=== PATIENT | male | born 1960 | race American Indian/Alaskan Native ===

== ENCOUNTER 2019-04-17 15:04 | Inpatient (IN) ==
[2019-04-17] MEDS ORDERED: 0.9 % SODIUM CHLORIDE 1,000 ML IV ONE (16:12)
[2019-04-17 16:50] LABS: Basophils # (Auto) 0 K/mcL (0.0-0.3); Basophils % (Auto) 0.2 % (0.0-2.0); Eosinophils # (Auto) 0 K/mcL (0.0-0.7); Eosinophils % (Auto) 0 % (0.0-7.0); Granulocytes % (Auto) 87.5 % (38.0-78.0); Hematocrit 38.8 % (41.0-55.0); Hemoglobin 13.2 g/dL (13.5-16.5); Lymphocytes # (Auto) 0.7 K/mcL (1.5-4.8); Lymphocytes % (Auto) 7.8 % (15.5-49.0); Mean Cell Volume 104.3 fL (80.0-100.0); Mean Corpuscular HGB Conc 34.2 g/dL (31.0-36.0); Mean Platelet Volume 6.7 fL (7.4-10.4); Monocytes # (Auto) 0.4 K/mcL (0.1-0.9); Monocytes % (Auto) 4.5 % (1.0-12.0); Platelet Count 313 K/mcL (140-440); RBC 3.72 M/mcL (4.50-5.90); Red Cell Distribution Width 13.9 % (11.5-14.5); WBC 9.3 K/mcL (4.5-11.0)
[2019-04-17 17:09] LABS: ALT/SGPT 73 U/l (0-40); AST/SGOT 72 U/l (0-37); Albumin 4.6 gm/dL (3.2-5.2); Albumin/Globulin Ratio 1.1 (1.0-2.3); Alkaline Phosphatase 145 U/L (39-117); Amylase 76 U/L (28-100); Bilirubin,Total 0.7 mg/dL (0.0-1.0); Blood Urea Nitrogen 48 mg/dl (6-20); Calcium 9.1 mg/dl (8.6-10.4); Carbon Dioxide 18 mmol/L (22-30); Chloride 99 mmol/L (96-108); Globulin 4.1 gm/dL (2.2-3.7); Glomerular Filtration Rate 40; Glucose 227 mg/dL (70-105); Lipase 186 U/L (7-60); Potassium 4.6 mmol/L (3.3-5.1); Sodium 135 mmol/L (133-145)
[2019-04-17] MEDS ORDERED: ONDANSETRON 4 MG/2 ML VIAL IV ONE (17:37)
--- NOTE | 2019-04-17 17:38 | Emergency Department Note ---
Abdominal Pain HPI - General Chief Complaint: Abdominal Pain Stated Complaint: Abdominal Cramping Time Seen by Provider: 04/17/19 16:12 Source: patient Mode of arrival: ambulatory Limitations: no limitations - History of Present Illness HPI Narrative: 59-year-old male presents with abdominal pain. States he had upper abdominal pain off and on for the last several years and nobody believes him. His abdominal pain was worse today when he was at the chiropractor and acupuncture office. States he is recently started seeing Dr. Damon for his back pain, which is a hard story to follow, but he suggested some acupuncture so he started going to [facility]. She suggested he come to the ER due to his severe abdominal pain and shakiness today. He does note that he binge drinks a couple of times a week. Last drink was Tuesday and Tuesday. "A bottle ". In the history there is mention about previous pancreatitis but he denies any knowledge of previous pancreatitis. States he did have hepatitis B at the age of 13. He is a somewhat poor historian and hard to follow. No fever chills. Does have some nausea. No vomiting or diarrhea. It is a cramping type feeling across his upper abdomen that was a 10 out of 10 earlier but is slightly better now. States this has been going on for years but much worse over the last couple of days. - Related Data Home Medications Medication Instructions Recorded Confirmed aspirin 81 mg tablet,delayed 81 mg PO QDAY 12/09/15 04/17/19 release cetirizine 10 mg tablet 10 mg PO QHS 12/09/15 04/17/19 cyanocobalamin (vit B-12) 1,000 1,000 mcg PO QDAY 12/09/15 04/17/19 mcg tablet irbesartan 75 mg tablet 75 mg PO QDAY 12/09/15 04/17/19 lidocaine 5 % topical patch 5 % TRANSDERMA QDAY patch 12/09/15 04/17/19 methocarbamol 750 mg tablet 750 mg PO QID tab 12/09/15 04/17/19 omeprazole 20 mg capsule,delayed 20 mg PO QDAY cap 12/09/15 04/17/19 release pravastatin 40 mg tablet 20 mg PO QHS tab 12/09/15 04/17/19 ondansetron 4 mg disintegrating 4 mg PO BID tab 10/11/17 04/17/19 tablet Allopurinol [Zyloprim] 100 mg PO QDAY 04/17/19 04/17/19 Carvedilol [Coreg] 12.5 mg PO BIDCC 04/17/19 04/17/19 Gabapentin [Neurontin] 300 mg BID 04/17/19 04/17/19 prednisoLONE [Millipred] 5 mg PO DAILY 04/17/19 04/17/19 Previous Rx's Medication Instructions Recorded methotrexate sodium 2.5 mg tablet 15 mg PO QWEEK #24 tab 11/30/18 folic acid 1 mg tablet 1 mg PO QDAY #30 tab 12/14/18 Allergies Allergy/AdvReac Type Severity Reaction Status Date / Time codeine Allergy Unknown Unknown Verified 12/14/18 14:11 ibuprofen Allergy Unknown Unknown Verified 12/14/18 14:11 loratadine Allergy Unknown Unknown Verified 12/14/18 14:11 venom-honey bee Allergy Unknown Unknown Verified 12/14/18 14:11 [bee venom (honey bee)] Review of Systems All systems ED: reviewed and negative except as stated. Abdominal Pain PMH - Past Medical History [facility] Narrative: Medical History (Last Reviewed 12/14/18 @ 14:12 by Tierra Garcia CMA) Left shoulder pain (Acute) Hepatitis B core antibody positive (Chronic) Elevated liver enzymes (Chronic) Trigger thumb, left thumb (Acute) Spondyloarthropathy (Chronic) Hyperuricemia (Chronic) Rash (Chronic) Encounter for long-term current use of high risk medication (Chronic) Arthralgia of multiple joints (Chronic) Inflammatory arthritis (Chronic) Back pain (Chronic) Alcoholism (Chronic) CAD (coronary artery disease) (Chronic) CKD (chronic kidney disease) (Chronic) Diabetes mellitus with neuropathy (Chronic) Essential hypertension (Chronic) Inflammatory monoarthritis of left wrist (Chronic) Myocardial infarction (Chronic) Tenosynovitis (Chronic) Past Surgical History (Last Reviewed 12/14/18 @ 14:12 by Tierra Garcia CMA) History of surgery (Chronic) - Social History Smoking status: Former smoker Alcohol use: Reports: Frequently, Heavy Drug use: Reports: unknown Physical Exam Limitations: no limitations General appearance: alert, other (Appears in pain) Head: atraumatic, normocephalic, normal inspection Eye: Present: normal appearance. Absent: conjunctival injection ENT: mucous membranes moist Chest: Present: symmetric chest wall rise Respiratory: Present: normal lung sounds bilaterally. Absent: respiratory distress, rales/crackles, wheezes, accessory muscle use Cardiovascular: Present: regular rate, normal heart sounds Abdominal: Present: soft, tenderness (Right upper quadrant and left upper quadrant tenderness with palpation), guarding (Upper abdomen), normal bowel sounds. Absent: distention, mass Extremities: Present: normal inspection Neurological: Present: alert, oriented X3 Psychiatric: Present: normal affect, normal mood Skin: Present: warm, dry, intact, normal color. Absent: rash, cyanosis, diaphor esis, erythema Course Course Narrative: @1910 Dr. Santos accepted this pt and agrees to admit to hospitalist services. Vital Signs Temperature 97.9 F 04/17/19 15:04 Pulse Rate 120 H 04/17/19 15:04 Respiratory Rate 04/17/19 15:04 Blood Pressure 148/90 04/17/19 15:04 Pulse Oximetry (%) 98 04/17/19 15:04 Temperature 97.9 F 04/17/19 15:04 Pulse Rate 114 H 04/17/19 17:38 Respiratory Rate 04/17/19 15:04 Blood Pressure 166/98 04/17/19 17:38 Pulse Oximetry (%) 98 04/17/19 15:04 Abdominal Pain - Lab Data Lab results reviewed: Yes I reviewed the patient's lab results. Result diagrams: 04/17/19 16:20 04/17/19 16:20 Lab Results 04/17/19 04/17/19 Range/Units 16:20 16:20 WBC 9.3 (4.5-11.0) K/mcL RBC 3.72 L (4.50-5.90) M/mcL Hgb 13.2 L (13.5-16.5) g/dL Hct 38.8 L (41.0-55.0) % MCV 104.3 H (80.0-100.0) fL MCH 35.6 H (26.0-34.0) pg MCHC 34.2 (31.0-36.0) g/dL RDW 13.9 (11.5-14.5) % Plt Count 313 (140-440) K/mcL MPV 6.7 L (7.4-10.4) fL Gran % 87.5 H (38.0-78.0) % Lymph % (Auto) 7.8 L (15.5-49.0) % Billings % (Auto) 4.5 (1.0-12.0) % Eos % (Auto) 0 (0.0-7.0) % Baso % (Auto) 0.2 (0.0-2.0) % Gran # 8.1 H (1.8-8.0) K/mcL Lymph # (Auto) 0.7 L (1.5-4.8) K/mcL Billings # (Auto) 0.4 (0.1-0.9) K/mcL Eos # (Auto) 0 (0.0-0.7) K/mcL Baso # (Auto) 0 (0.0-0.3) K/mcL Sodium 135 (133-145) mmol/L Potassium 4.6 (3.3-5.1) mmol/L Chloride 99 (96-108) mmol/L Carbon Dioxide 18 L (22-30) mmol/L Anion Gap 18.0 H (8-16) BUN 48 H (6-20) mg/dl Creatinine 1.8 H (0.7-1.2) mg/dl GFR Calculation 40 Glucose 227 H (70-105) mg/dL Calcium 9.1 (8.6-10.4) mg/dl Total Bilirubin 0.7 (0.0-1.0) mg/dL AST 72 H (0-37) U/l ALT 73 H (0-40) U/l Alkaline Phosphatase 145 H (39-117) U/L Total Protein 8.7 H (5.9-8.4) gm/dL Albumin 4.6 (3.2-5.2) gm/dL Globulin 4.1 H (2.2-3.7) gm/dL Albumin/Globulin Ratio 1.1 (1.0-2.3) Amylase 76 (28-100) U/L Lipase 186 H (7-60) U/L Disposition Pt seen by LOG SCALER/PA only: No Clinical Impression: Pancreatitis, Abdominal pain, Alcohol abuse Disposition: Xfer As Inpt ([facility]) Condition: Fair Referrals: Stanislaw Rachel MD [Primary Care Provider] - Time of Disposition: 19:10
[2019-04-17] MEDS: HYDROmorphone 2 MG/ML VIAL IV PRN ×2 (17:45→18:30)
--- NOTE | 2019-04-17 18:52 | Cat Scan Report ---
CLINICAL INFORMATION: Abdominal pain COMPARISON: None. TECHNIQUE: 0.625 mm helical slices were obtained from the mid heart through the subtrochanteric regions. Following reconstruction, 2.5 mm sagittal, coronal and axial reformatted images were processed and reviewed at bone and soft tissue windows.The exam was performed using radiation dose optimization techniques including, but not limited to, automated exposure control, adjustment of the mA and/or kV according to patient size and use of iterative reconstruction technique. FINDINGS: Lung bases show no abnormality - no effusion. The visualized heart is unremarkable. Images through the abdomen show the noncontrasted liver, gallbladder and bile ducts, both adrenal glands, spleen, pancreas and aorta are normal in size, configuration and attenuation without focal lesion. Both kidneys are normal in size configuration and attenuation. There is perinephric stranding (this is commonly seen and typically clinically insignificant. Images through the pelvis the prostate, seminal vesicles and urinary bladder are unremarkable.. There are multiple sigmoid diverticuli. Interestingly, there is a moderate left inguinal hernia (5 x 2 cm) which contains mesenteric fat and a single sigmoid diverticula. The remainder of the colon, appendix, small bowel and stomach are normal. Bone windows show no focal osseous abnormality. At L4-5 there is moderate central canal, lateral recess and bilateral IV foraminal narrowing due to disc protrusion and facet arthropathy. IMPRESSION: Moderate left inguinal hernia spanning 5.4 cm containing mesenteric fat and a single sigmoid diverticula. There is inflammation or edema within the hernia sac. Sigmoid diverticulosis, but no CT evidence for melita diverticulitis. L4-5: Moderate central canal, lateral recess and IV foraminal stenosis due to degenerative disc disease and facet hypertrophy. Interpreted and Authenticated by: West Vásquez 04/17/19
--- NOTE | 2019-04-17 19:44 | Internal Med History&Physical ---
Medical - H&P: HPI Patient information: Note initiated : 04/17/19 at 7:38 pm Service Date, if different from initiated Date: [] Patient: Steve Murray a 59 y/o M admitted on for Abdominal Cramping. Chief Complaint: [] History of present illness: Mr. Murray is a 59 year old M with h/o chr back pain, presents to the ER today for evaluation of abdomional pain The patient notes that he has had abdominal pain cramping in nature epigastric that has been bothering him for nearly 2 years. Over the last couple of days he notes that the pain has gotten severe, today when he was at the chiropractor the pain was very severe and therefore he was asked to come to the emergency room for further evaluation. He notes the pain is epigastric, intermittent cramping no aggravating factors relieved with pain medications in the ED associated with some nausea. The patient does not note any specific relationship with food. He denies any significant vomiting, he denies any dark stools or blood in stools. He does have chronic constipation alternating with diarrhea. He attributes this to his irregular bowel movements and notes that when he is constipated he takes stool softeners will result in diarrhea. The patient denies any fever does admit to having some chills. Has had decreased p.o. intake because of the nausea that has been bothering him. The patient otherwise denies any new headache chest pain shortness of breath denies any cough denies any urinary symptoms denies any swelling in the legs skin rashes or any other acute complaints. The patient admits to drinking alcohol, buys 1/5 of vodka a few times a month and binge drinks over 1 to 2 days. Recently celebrated his birthday on with his friend and had alcohol. In the emergency room patient has a normal WBC count hemoglobin 13.2 MCV 104 platelets 314 chemistries show sodium of 135 potassium 4.6 bicarbonate 18 creatinine 1.8 BUN 48 glucose 227 AST 72 ALT 73 alk phos 145 total protein is 8.[address] abdomen and pelvis is negative for any acute pathology does have hernia left inguinal. Given that patient has acute kidney injury unable to tolerate p.o. diet as well as epigastric pain likely related to gastritis or pancreatitis patient is being admitted to observation status to the hospital All systems: reviewed and no additional remarkable complaints except as stated (as per HPI rest negative) Medical - H&P: [facility] Medical history: Medical History (Last Reviewed 12/14/18 @ 14:12 by Tierra Garcia CMA) Left shoulder pain (Acute) Hepatitis B core antibody positive (Chronic) Elevated liver enzymes (Chronic) Trigger thumb, left thumb (Acute) Spondyloarthropathy (Chronic) Hyperuricemia (Chronic) Rash (Chronic) Encounter for long-term current use of high risk medication (Chronic) Arthralgia of multiple joints (Chronic) Inflammatory arthritis (Chronic) Back pain (Chronic) Alcoholism (Chronic) CAD (coronary artery disease) (Chronic) CKD (chronic kidney disease) (Chronic) Diabetes mellitus with neuropathy (Chronic) Essential hypertension (Chronic) Inflammatory monoarthritis of left wrist (Chronic) Myocardial infarction (Chronic) Tenosynovitis (Chronic) Surgical history: Past Surgical History (Last Reviewed 12/14/18 @ 14:12 by Teirra Garcia CMA) History of surgery (Chronic) Family history: reviewed and not pertinent Medical - H&P: Meds Home Medications Medication Instructions Recorded Confirmed Type aspirin 81 mg tablet,delayed 81 mg PO QDAY 12/09/15 04/17/19 History release cetirizine 10 mg tablet 10 mg PO QHS 12/09/15 04/17/19 History cyanocobalamin (vit B-12) 1,000 1,000 mcg PO QDAY 12/09/15 04/17/19 History mcg tablet irbesartan 75 mg tablet 75 mg PO QDAY 12/09/15 04/17/19 History lidocaine 5 % topical patch 5 % TRANSDERMA QDAY patch 12/09/15 04/17/19 History methocarbamol 750 mg tablet 750 mg PO QID tab 12/09/15 04/17/19 History omeprazole 20 mg capsule,delayed 20 mg PO QDAY cap 12/09/15 04/17/19 History release pravastatin 40 mg tablet 20 mg PO QHS tab 12/09/15 04/17/19 History ondansetron 4 mg disintegrating 4 mg PO BID tab 10/11/17 04/17/19 History tablet methotrexate sodium 2.5 mg tablet 15 mg PO QWEEK #24 tab 11/30/18 04/17/19 Rx folic acid 1 mg tablet 1 mg PO QDAY #30 tab 12/14/18 04/17/19 Rx Allopurinol [Zyloprim] 100 mg PO QDAY 04/17/19 04/17/19 History Carvedilol [Coreg] 12.5 mg PO BIDCC 04/17/19 04/17/19 History Gabapentin [Neurontin] 300 mg BID 04/17/19 04/17/19 History prednisoLONE [Millipred] 5 mg PO DAILY 04/17/19 04/17/19 History Allergies Allergy/AdvReac Type Severity Reaction Status Date / Time codeine Allergy Unknown Unknown Verified 12/14/18 14:11 ibuprofen Allergy Unknown Unknown Verified 12/14/18 14:11 loratadine Allergy Unknown Unknown Verified 12/14/18 14:11 venom-honey bee Allergy Unknown Unknown Verified 12/14/18 14:11 [bee venom (honey bee)] Medical - H&P: Exam - Constitutional Vitals: Temp Pulse Resp BP Pulse Ox 97.9 F 114 H 20 166/98 98 04/17/19 15:04 04/17/19 17:38 04/17/19 15:04 04/17/19 17:38 04/17/19 15:04 Exam: GENERAL: The patient is a well-developed, well-nourished in no apparent distr ess. Is alert and oriented x3. VITAL SIGNS: Reviewed and as noted elsewhere. HEENT: Head is normocephalic and atraumatic. Extraocular muscles are intact. Pupils are equal, round, and reactive to light. Nares appeared normal. Mouth appears any without lesions. Mucous membranes are dry. NECK: Normal to inspection, Supple, No lymphadenopathy or thyromegaly. LUNGS: Air entry equal on both sides, no wheezing, crackles or rhonchi noted. No accessory muscles of respiration HEART: Regular rate and rhythm normal, S1 and S2 heard, no Gallop, S3 or Rub Noted, No Gross murmur heard. ABDOMEN: Soft, nontender, and nondistended. Positive bowel sounds. No hepatosplenomegaly was noted. Roper sign negative EXTREMITIES: No cyanosis, clubbing, rash, lesions or edema. NEUROLOGIC: Cranial nerves II through XII are grossly intact. Motor and Sensory System Grossly Intact, he is tremulous PSYCHIATRIC: Normal affect, Normal Mood. Appropriate Behavior. SKIN: No ulceration or wounds noted, No jaundice, No rash noted. Medical - H&P: Reslt - Labs CBC & Chem 7: 04/17/19 16:20 04/17/19 16:20 Labs: Short CBC 04/17/19 Range/Units 16:20 WBC 9.3 (4.5-11.0) K/mcL Hgb 13.2 L (13.5-16.5) g/dL Hct 38.8 L (41.0-55.0) % Plt Count 313 (140-440) K/mcL BMP 04/17/19 16:20 Sodium 135 Potassium 4.6 Chloride 99 Carbon Dioxide 18 L BUN 48 H Creatinine 1.8 H Glucose 227 H Calcium 9.1 Liver Function 04/17/19 Range/Units 16:20 Total Bilirubin 0.7 (0.0-1.0) mg/dL AST 72 H (0-37) U/l ALT 73 H (0-40) U/l Alkaline Phosphatase 145 H (39-117) U/L Albumin 4.6 (3.2-5.2) gm/dL Medical - H&P: A/P - Narrative A/P Narrative: A/P Abdominal pain -epigastric cramping in nature, chr with acute exacerbation -CT neg for pancreatitis, but given his etoh use, chr pancreatitis is plausible, mild lipase elevation noted. -Pain medications for now, IV PPI -CT shows hernia, in the inguinal region with mild inflammation, referred pain? review with surgery Acute Kidney Injury -likely pre renal, h/o CKD and follows with Dr Guzman -check ua, urine sodium, and urine prot creat ratio. -IVF Chr pain -inflammatory arthropathy -follows with Dr Damon, -on steroids, gabapentin, muscle relaxants, methtrexate, resume home meds Abnl LFT -worse now than previous labs, -CT neg, due to etoh? -does ahve h/o hep b -monitor for now Alcohol abuse -IV thiamine today -monitor, consider CIWA protocol if shows signs of withdrawal DVT hep sq Diet regular Full code Social History - Tobacco smoking status: Former smoker - Alcohol alcohol intake frequency: a few times a month (heavy drinker) - Substance use substance use type: marijuana
[2019-04-17] MEDS ORDERED: ALBUTEROL SULFATE 2.5 MG/3 ML NEBULIZER NEB PRN (20:13)
[2019-04-17] MEDS ORDERED: HYDROmorphone 2 MG/ML VIAL IV PRN (20:13)
[2019-04-17] MEDS ORDERED: NALOXONE HCL 0.4 MG/ML VIAL IV PRN (20:13)
[2019-04-17] MEDS ORDERED: LORazepam 2 MG/ML VIAL IV PRN (20:50)
[2019-04-17] MEDS ORDERED: PROMETHAZINE 25 MG/ML VIAL IV PRN (20:51)
[2019-04-17] MEDS ORDERED: PRAVASTATIN 40 MG TABLET PO SCH (21:00)
[2019-04-17] MEDS ORDERED: THIAMINE 100 MG/ML VIAL ONE (21:01)
[2019-04-17] MEDS: ONDANSETRON 4 MG/2 ML VIAL IV PRN (21:05)
[2019-04-17] MEDS: THIAMINE 100 MG in 0.9 % SODIUM CHLORIDE 50 ML IV SCH (21:15)
[2019-04-17] MEDS: HEPARIN 5,000 UNIT/ML VIAL SQ SCH (21:18)
[2019-04-17] MEDS ORDERED: DEXTROSE 31 GM ORAL.SUSP PO PRN (21:27)
[2019-04-17] MEDS ORDERED: DEXTROSE 50% 50 ML VIAL IV PRN (21:27)
[2019-04-17 22:29] LABS: Appearance,Urine CLEAR; Bacteria,Urine 0 /hpf (0); Bilirubin,Urine NEG (NEG); Color,Urine YELLOW; Culture Indicated,Urine NO; Glucose,Urine (UA) NEGATIVE (NEG); Ketones,Urine 5/TR mg/dL (NEG); Leukocyte Esterase,Urine NEG /uL (NEG); Mucus,Urine FEW /hpf (0); Nitrate,Urine NEG (NEG); Protein,Urine 100 mg/dL (NEG); Specific Gravity,Urine 1.021 (1.000-1.035); Urine Blood NEG mg/dL (<0.03); Urine Hyaline Cast 8 /lpf (0-2); Urine RBC 1 /hpf (0-1); Urine Squamous Epithelial Cell < 1 /hpf (0-4); Urine WBC 2 /hpf (0-4); Urobilinogen,Urine NEG (NEG)
[2019-04-17] MEDS: 0.9 % SODIUM CHLORIDE 10 ML SYRINGE IV SCH ×2 (23:41)
[2019-04-17] MEDS: CETIRIZINE 10 MG TABLET PO SCH (23:56)
[2019-04-17] MEDS: SIMVASTATIN 10 MG TABLET PO SCH (23:56)
[2019-04-17] MEDS: METHOCARBAMOL 750 MG TABLET PO SCH (23:57)
[2019-04-18] MEDS: GABAPENTIN 100 MG CAPSULE PO SCH ×3 (00:02→23:04)
[2019-04-18 05:46] LABS: Basophils # (Auto) 0 K/mcL (0.0-0.3); Basophils % (Auto) 0.2 % (0.0-2.0); Eosinophils # (Auto) 0 K/mcL (0.0-0.7); Eosinophils % (Auto) 0 % (0.0-7.0); Granulocytes % (Auto) 66.1 % (38.0-78.0); Hematocrit 31.8 % (41.0-55.0); Hemoglobin 11.2 g/dL (13.5-16.5); Lymphocytes # (Auto) 1.1 K/mcL (1.5-4.8); Lymphocytes % (Auto) 19.8 % (15.5-49.0); Mean Cell Volume 105.5 fL (80.0-100.0); Mean Corpuscular HGB Conc 35.2 g/dL (31.0-36.0); Mean Platelet Volume 7.1 fL (7.4-10.4); Monocytes # (Auto) 0.8 K/mcL (0.1-0.9); Monocytes % (Auto) 13.9 % (1.0-12.0); Platelet Count 237 K/mcL (140-440); RBC 3.02 M/mcL (4.50-5.90); Red Cell Distribution Width 14.5 % (11.5-14.5); WBC 5.5 K/mcL (4.5-11.0)
[2019-04-18 06:07] LABS: ALT/SGPT 56 U/l (0-40); AST/SGOT 48 U/l (0-37); Albumin 3.8 gm/dL (3.2-5.2); Albumin/Globulin Ratio 1.1 (1.0-2.3); Alkaline Phosphatase 114 U/L (39-117); Bilirubin,Direct < 0.2 mg/dL (0.0-0.3); Bilirubin,Total 0.7 mg/dL (0.0-1.0); Blood Urea Nitrogen 39 mg/dl (6-20); Calcium 8.4 mg/dl (8.6-10.4); Carbon Dioxide 19 mmol/L (22-30); Chloride 102 mmol/L (96-108); Gamma Glutamyl Transpeptidase 296 U/L (8-61); Globulin 3.4 gm/dL (2.2-3.7); Glomerular Filtration Rate 59; Glucose 170 mg/dL (70-105); Lactate Dehydrogenase 197 U/L (94-250); Magnesium 1.8 mg/dL (1.6-2.5); Phosphorous 3.5 mg/dL (2.7-4.5); Potassium 4.7 mmol/L (3.3-5.1); Sodium 135 mmol/L (133-145); Triglycerides 297 mg/dl (<150); Uric Acid 8.8 mg/dL (2.5-8.0)
[2019-04-18] MEDS: 0.9 % SODIUM CHLORIDE 10 ML SYRINGE IV SCH ×4 (06:52→22:30)
[2019-04-18] MEDS: INSULIN LISPRO 1 UNIT/0.01 ML UNIT SQ SCH ×4 (07:41→23:03)
--- NOTE | 2019-04-18 08:17 | Internal Med Progress Note ---
Medical - PN: Subj Patient information: Note initiated : 04/18/19 at 8:14 am Service Date, if different from initiated Date: [] Patient: Steve Murray a 59 y/o M admitted on 04/17/19 for Abdominal Cramping. Chief Complaint: [] Interval history: Mr. Murray is a 59 year old M with h/o chr back pain, presents to the ER today for evaluation of abdomional pain The patient notes that he has had abdominal pain cramping in nature epigastric that has been bothering him for nearly 2 years. Over the last couple of days he notes that the pain has gotten severe, today when he was at the chiropractor the pain was very severe and therefore he was asked to come to the emergency room for further evaluation. He notes the pain is epigastric, intermittent cramping no aggravating factors relieved with pain medications in the ED associated with some nausea. The patient does not note any specific relationship with food. He denies any significant vomiting, he denies any dark stools or blood in stools. He does have chronic constipation alternating with diarrhea. He attributes this to his irregular bowel movements and notes that when he is constipated he takes stool softeners will result in diarrhea. The patient denies any fever does admit to having some chills. Has had decreased p.o. intake because of the nausea that has been bothering him. The patient otherwise denies any new headache chest pain shortness of breath denies any cough denies any urinary symptoms denies any swelling in the legs skin rashes or any other acute complaints. The patient admits to drinking alcohol, buys 1/5 of vodka a few times a month and binge drinks over 1 to 2 days. Recently celebrated his birthday on with his friend and had alcohol. In the emergency room patient has a normal WBC count hemoglobin 13.2 MCV 104 platelets 314 chemistries show sodium of 135 potassium 4.6 bicarbonate 18 creatinine 1.8 BUN 48 glucose 227 AST 72 ALT 73 alk phos 145 total protein is 8.[address] abdomen and pelvis is negative for any acute pathology does have hernia left inguinal. Given that patient has acute kidney injury unable to tolerate p.o. diet as well as epigastric pain likely related to gastritis or pancreatitis patient is being admitted to observation status to the hospital Pt was later transitioned to inpt status due to Etoh withdrawal. 04/18 Pt seen examined, pt abdominal pain is better now, feels like he could eat something no BM since yesterday on CIWA protocol, I think ativan helped his symptoms, lipase trending down, labs stable, creat improving. Pertinent ROS: Denies headache, dizziness Denies chest pain, palpitations Denies cough or shortness of breath improving abdominal pain, nausea improved, vomited x 2 last night as per pt - Constitutional Vitals: Vital Signs Temp Pulse Resp BP Pulse Ox 97.8 F 71 16 145/80 98 04/18/19 08:00 04/18/19 08:00 04/18/19 08:00 04/18/19 08:00 04/18/19 08:00 Period Temp Pulse Resp BP Sys/Fox Pulse Ox Last 24 Hr 97.4 F-97.9 F 71-120 16-26 132-174/71-98 94-98 Intake and Output 04/17/19 04/18/19 04/18/19 21:59 05:59 13:59 Intake Total 1000 51 Balance 1000 51 Weight 158 lb Intake & Output: Intake & Output 04/17/19 04/18/19 04/18/19 21:59 05:59 13:59 Intake Total 1000 51 Balance 1000 51 Weight 158 lb Intake: IV 1000 51 Sodium Chloride 0.9% 1,000 ml @ 1000 Wide Open IV B[facility] ONE Rx#: [id number] Vitamin B1 100 mg In Sodium 51 Chloride 0.9% 50 ml @ 50 mls/hr IV DAILY [facility] Rx#:[id number] Oral 0 Exam: Constitutional; Afebrile, cooperative, alert, not in distress. Respiratory system: Air Entry equal on both sides, No crackles or wheezing, no rhonchi. CVS- Rate rhythm regular, S1,S2 heard, no gallop, no rub. Abdomen- Soft nontender abdomen, no organomegaly, no tenderness, no guarding or rigidity, [employer]- AOOx3, moving all extremities, no gross focal deficit noted. tremors are much improved. Medical - PN: Obj Da - Labs CBC & Chem 7: 04/18/19 04:08 04/18/19 04:08 Labs: Abnormal Lab Results 04/18/19 04/18/19 04/18/19 04:08 04:08 04:08 RBC 3.02 L Hgb 11.2 L Hct 31.8 L MCV 105.5 H MCH 37.1 H MPV 7.1 L Gran % Lymph % (Auto) [place] % (Auto) 13.9 H Gran # Lymph # (Auto) 1.1 L Carbon Dioxide 19 L Anion Gap BUN 39 H Creatinine 1.3 H Glucose 170 H Uric Acid 8.8 H Calcium 8.4 L GGT 296 H AST 48 H ALT 56 H Alkaline Phosphatase Total Protein Globulin Triglycerides 297 H Lipase 106 H Urine Protein Urine Ketones Hyaline Casts 04/17/19 04/17/19 04/17/19 21:11 16:20 16:20 RBC 3.72 L Hgb 13.2 L Hct 38.8 L MCV 104.3 H MCH 35.6 H MPV 6.7 L Gran % 87.5 H Lymph % (Auto) 7.8 L [place] % (Auto) Gran # 8.1 H Lymph # (Auto) 0.7 L Carbon Dioxide 18 L Anion Gap 18.0 H BUN 48 H Creatinine 1.8 H Glucose 227 H Uric Acid Calcium GGT AST 72 H ALT 73 H Alkaline Phosphatase 145 H Total Protein 8.7 H Globulin 4.1 H Triglycerides Lipase 186 H Urine Protein 100 A Urine Ketones 5/tr A Hyaline Casts 8 H Meds: Medications Albuterol Sulfate (Ventolin) 2.5 mg NEB Q2HP PRN PRN Reason: Shortness Of Breath Allopurinol (Zyloprim) 100 mg PO QDAY [facility] Aspirin (Aspirin) 81 mg PO DAILY [facility] Carvedilol (Coreg) 12.5 mg PO BIDCC [facility] Cetirizine HCl (Zyrtec) 10 mg PO QHS [facility] Last Admin: 04/17/19 23:56 Dose: 10 mg Documented by: Cyanocobalamin (Vitamin B-12) 1,000 mcg PO QDAY [facility] Dextrose (Dextrose 50%) 0 ml IV UD PRN PRN Reason: Hypoglycemia Diagnostic Test (Pha) (Accu-Chek) 1 each FS ACHS [facility] Last Admin: 04/18/19 07:40 Dose: 1 each Documented by: Folic Acid (Folic Acid) 1 mg PO QDAY [facility] Gabapentin (Neurontin) 300 mg PO BID [facility] Last Admin: 04/18/19 00:02 Dose: 300 mg Documented by: Glucose (Insta-Glucose) 15 gm PO PRN PRN PRN Reason: Hypoglycemia Heparin Sodium (Porcine) (Heparin) 5,000 unit SQ Q12 [facility] Last Admin: 04/17/19 21:18 Dose: 5,000 unit Documented by: Hydromorphone HCl (Dilaudid) 0.5 mg IV Q2HP PRN PRN Reason: PAIN LEVEL > 6 Thiamine HCl 100 mg/ Sodium (Chloride) 51 mls @ 50 mls/hr IV DAILY [facility] Stop: 04/19/19 10:02 Last Infusion: 04/17/19 23:40 Dose: Infused Documented by: Insulin Human Lispro (Humalog) 0 unit SQ ACHS [facility]; Protocol Last Admin: 04/18/19 07:41 Dose: Not Given Documented by: Iron Carb/Multivit/[place]/Folic Acid (Multivitamin W/Minerals) 1 tab PO DAILY [facility] Lorazepam (Ativan) 0 mg IV Q4HP PRN; Protocol PRN Reason: Alcohol Withdrawal Last Admin: 04/17/19 21:42 Dose: 4 mg Documented by: Losartan Potassium (Cozaar) 25 mg PO DAILY [facility] Methocarbamol (Robaxin) 750 mg PO QID [facility] Last Admin: 04/17/19 23:57 Dose: 750 mg Documented by: Methotrexate (Methotrexate) 15 mg PO QWEEK [facility] Naloxone HCl (Narcan) 0.1 mg IV Q2MIN PRN PRN Reason: Opiate Reversal Ondansetron HCl (Zofran) 4 mg IV Q6HP PRN PRN Reason: Nausea And Vomiting Last Admin: 04/17/19 21:05 Dose: 4 mg Documented by: Oxycodone HCl (Roxicodone) 5 mg PO Q4HP PRN PRN Reason: PAIN LEVEL 3-6 Prednisone (Prednisone) 5 mg PO QAMCC [facility] Promethazine HCl (Phenergan) 12.5 mg IV Q4HP PRN PRN Reason: Nausea And Vomiting Simvastatin (Zocor) 10 mg PO HS [facility] Last Admin: 04/17/19 23:56 Dose: 10 mg Documented by: Sodium Chloride (Saline Flush) 10 ml IV Q8 [facility] Last Admin: 04/18/19 06:52 Dose: Not Given Documented by: Sodium Chloride (Saline Flush) 10 ml IV Q8 [facility] Last Admin: 04/18/19 06:52 Dose: Not Given Documented by: Medical - PN: A/P - Time Spent With Patient Total time spent is greater than 50% in coordination of care (as documented) at patient's floor/unit and/or counseling patient: - Narrative A/P Narrative: A/P Abdominal pain/ Chr pancreatitis? vs Gastritis -epigastric cramping in nature, chr with acute exacerbation -much improved, likely related to etoh withdrawal, see if he can tolerate po, -continue conservative management. Acute Kidney Injury -likely pre renal, h/o CKD and follows with Dr Guzman, creat is improving. -check ua, urine sodium, and urine prot creat ratio. (pending studies) -IVF to continue Chr pain -inflammatory arthropathy -follows with Dr Damon, -on steroids, gabapentin, muscle relaxants, methotrexate, resume home meds Abnl LFT -worse now than previous labs, but now trending down -CT neg, due to etoh? -does ahve h/o hep b -monitor for now Alcohol abuse -IV thiamine -CIWA with IV ativan prn DVT hep sq Diet regular Full code Medical - PN: Qual - VTE Deep Vein Thrombosis/Pulmonary Embolism Present on Admission: No
[2019-04-18] MEDS: HEPARIN 5,000 UNIT/ML VIAL SQ SCH ×2 (08:46→23:03)
[2019-04-18] MEDS: ALLOPURINOL 100 MG TABLET PO SCH (08:46)
[2019-04-18] MEDS: CYANOCOBALAMIN (VITAMIN B-12) 500 MCG TABLET PO SCH (08:46)
[2019-04-18] MEDS: FOLIC ACID 1 MG TABLET PO SCH (08:47)
[2019-04-18] MEDS: MULTIVIT,THER IRON,CA,FA & MIN 1 TABLET PO SCH (08:47)
[2019-04-18] MEDS: predniSONE 5 MG TABLET PO SCH (08:47)
[2019-04-18] MEDS: LOSARTAN 25 MG TABLET PO SCH (08:47)
[2019-04-18] MEDS: METHOCARBAMOL 750 MG TABLET PO SCH ×4 (08:47→23:05)
[2019-04-18] MEDS: CARVEDILOL 12.5 MG TABLET PO SCH ×2 (08:47→16:53)
[2019-04-18] MEDS: ASPIRIN 81 MG TAB.CHEW PO SCH (08:47)
[2019-04-18] MEDS: THIAMINE 100 MG in 0.9 % SODIUM CHLORIDE 50 ML IV SCH (09:49)
[2019-04-18 15:14] LABS: Creatinine, Spot Urine 142.4 mg/dl; Pro:Crea Ratio 1.19 mg:mg
[2019-04-18 16:36] LABS: Alcohol, Urine NONE DETECTED (NONDETECTED); Amphetamine Screen,Urine NONE DETECTED (NONDETECTED); Barbiturate Screen,Urine NONE DETECTED (NONDETECTED); Benzodiazepines Screen,Urine NONE DETECTED (NONDETECTED); Cannabinoid Screen,Urine SUSPECT POSITIVE (NONDETECTED); Cocaine Screen,Urine NONE DETECTED (NONDETECTED); Opiate Screen,Urine NONE DETECTED (NONDETECTED); Oxycodone, Urine Screen NONE DETECTED (NONDETECTED); Phencyclidine Screen,Urine NONE DETECTED (NONDETECTED)
[2019-04-18] MEDS: CETIRIZINE 10 MG TABLET PO SCH (23:05)
[2019-04-18] MEDS: SIMVASTATIN 10 MG TABLET PO SCH (23:05)
[2019-04-18] MEDS: oxyCODONE HCL 5 MG TABLET PO PRN (23:06)
[2019-04-19 05:20] LABS: Basophils # (Auto) 0 K/mcL (0.0-0.3); Basophils % (Auto) 0.9 % (0.0-2.0); Eosinophils # (Auto) 0 K/mcL (0.0-0.7); Eosinophils % (Auto) 0.7 % (0.0-7.0); Granulocytes % (Auto) 48.5 % (38.0-78.0); Hematocrit 32.9 % (41.0-55.0); Hemoglobin 11.3 g/dL (13.5-16.5); Lymphocytes # (Auto) 1.9 K/mcL (1.5-4.8); Lymphocytes % (Auto) 33.4 % (15.5-49.0); Mean Cell Volume 105.8 fL (80.0-100.0); Mean Corpuscular HGB Conc 34.4 g/dL (31.0-36.0); Mean Platelet Volume 7.4 fL (7.4-10.4); Monocytes # (Auto) 0.9 K/mcL (0.1-0.9); Monocytes % (Auto) 16.5 % (1.0-12.0); Platelet Count 227 K/mcL (140-440); RBC 3.11 M/mcL (4.50-5.90); WBC 5.6 K/mcL (4.5-11.0)
[2019-04-19 05:43] LABS: ALT/SGPT 46 U/l (0-40); AST/SGOT 53 U/l (0-37); Albumin 3.7 gm/dL (3.2-5.2); Albumin/Globulin Ratio 1.2 (1.0-2.3); Alkaline Phosphatase 106 U/L (39-117); Bilirubin,Direct < 0.2 mg/dL (0.0-0.3); Bilirubin,Total 0.6 mg/dL (0.0-1.0); Blood Urea Nitrogen 21 mg/dl (6-20); Calcium 8.7 mg/dl (8.6-10.4); Carbon Dioxide 21 mmol/L (22-30); Chloride 101 mmol/L (96-108); Gamma Glutamyl Transpeptidase 286 U/L (8-61); Globulin 3.2 gm/dL (2.2-3.7); Glomerular Filtration Rate 93; Glucose 129 mg/dL (70-105); Lactate Dehydrogenase 182 U/L (94-250); Magnesium 1.6 mg/dL (1.6-2.5); Phosphorous 2.5 mg/dL (2.7-4.5); Potassium 4.4 mmol/L (3.3-5.1); Sodium 135 mmol/L (133-145); Triglycerides 348 mg/dl (<150); Uric Acid 6.4 mg/dL (2.5-8.0)
[2019-04-19] MEDS: 0.9 % SODIUM CHLORIDE 10 ML SYRINGE IV SCH (06:11)
[2019-04-19] MEDS: INSULIN LISPRO 1 UNIT/0.01 ML UNIT SQ SCH ×2 (07:22→11:32)
[2019-04-19] MEDS: GABAPENTIN 100 MG CAPSULE PO SCH (08:51)
[2019-04-19] MEDS: THIAMINE 100 MG in 0.9 % SODIUM CHLORIDE 50 ML IV SCH (08:51)
[2019-04-19] MEDS: HEPARIN 5,000 UNIT/ML VIAL SQ SCH (08:51)
[2019-04-19] MEDS: FOLIC ACID 1 MG TABLET PO SCH (08:52)
[2019-04-19] MEDS: CYANOCOBALAMIN (VITAMIN B-12) 500 MCG TABLET PO SCH (08:52)
[2019-04-19] MEDS: METHOCARBAMOL 750 MG TABLET PO SCH (08:52)
[2019-04-19] MEDS: MULTIVIT,THER IRON,CA,FA & MIN 1 TABLET PO SCH (08:52)
[2019-04-19] MEDS: LOSARTAN 25 MG TABLET PO SCH (08:52)
[2019-04-19] MEDS: CARVEDILOL 12.5 MG TABLET PO SCH (08:52)
[2019-04-19] MEDS: ASPIRIN 81 MG TAB.CHEW PO SCH (08:52)
[2019-04-19] MEDS: ALLOPURINOL 100 MG TABLET PO SCH (08:52)
[2019-04-19] MEDS: predniSONE 5 MG TABLET PO SCH (08:53)
[2019-04-19] MEDS: ONDANSETRON 4 MG/2 ML VIAL IV PRN (08:59)
[2019-04-19] MEDS: oxyCODONE HCL 5 MG TABLET PO PRN (09:00)
--- NOTE | 2019-04-19 10:45 | Discharge Summary ---
Medical - DS: Prov Patient information: Note initiated : 04/19/19 at 10:38 am Service Date, if different from initiated Date: [] Patient: Steve Murray 59 y/o M admitted on 04/17/19 for Abdominal Cramping. Chief Complaint: [] Date of admission: 04/17/19 20:12 Discharge date: 04/19/19 Primary care physician: Stanislaw Rachel Consults: 04/17/19 Consult to Physician [CONS] Stat Comment: Consulting Provider: Wilbert Santos Reason For Exam: Physician to Consult Discharging clinician: Wilbert Santos Medical - DS: Meds - Discharge Medications Active and Home Medications: Home Medications aspirin 81 mg tablet,delayed release 81 mg PO QDAY 12/09/15 [History Confirmed 04/18/19 Last Taken 04/17/19] cetirizine 10 mg tablet 10 mg PO QHS 12/09/15 [History Confirmed 04/18/19 Last Taken 04/16/19] cyanocobalamin (vit B-12) 1,000 mcg tablet 1,000 mcg PO QDAY 12/09/15 [History Confirmed 04/18/19 Last Taken 04/17/19] irbesartan 75 mg tablet 75 mg PO QDAY 12/09/15 [History Confirmed 04/18/19 Last Taken 04/17/19] lidocaine 5 % topical patch 5 % TRANSDERMA QDAY patch 12/09/15 [History Confirmed 04/18/19 Last Taken 04/16/19] methocarbamol 750 mg tablet 750 mg PO QID tab 12/09/15 [History Confirmed 04/18/19 Last Taken 04/17/19] omeprazole 20 mg capsule,delayed release 20 mg PO QDAY cap 12/09/15 [History Confirmed 04/17/19 Last Taken Unknown] pravastatin 40 mg tablet 20 mg PO QHS tab 12/09/15 [History Confirmed 04/17/19 Last Taken Unknown] ondansetron 4 mg disintegrating tablet 4 mg PO BID tab 10/11/17 [History Confirmed 04/17/19 Last Taken Unknown] methotrexate sodium 2.5 mg tablet 15 mg PO QWEEK #24 tab 11/30/18 [Rx Confirmed 04/18/19 Last Taken 04/11/19] folic acid 1 mg tablet 1 mg PO QDAY #30 tab 12/14/18 [Rx Confirmed 04/18/19 Last Taken 04/17/19] Allopurinol [Zyloprim] 100 mg PO QDAY 04/17/19 [History Confirmed 04/18/19 Last Taken 04/17/19] Carvedilol [Coreg] 12.5 mg PO BIDCC 04/17/19 [History Confirmed 04/18/19 Last Taken 04/17/19] Gabapentin [Neurontin] 300 mg BID 04/17/19 [History Confirmed 04/18/19 Last Taken Unknown] prednisoLONE [Mill[place]] 5 mg PO DAILY 04/17/19 [History Confirmed 04/17/19 Last Taken Unknown] Medical - DS: Hosp Hospital course: Mr. Murray is a 59 year old M with h/o chr back pain, presents to the ER today for evaluation of abdomional pain The patient notes that he has had abdominal pain cramping in nature epigastric that has been bothering him for nearly 2 years. Over the last couple of days he notes that the pain has gotten severe, today when he was at the chiropractor the pain was very severe and therefore he was asked to come to the emergency room for further evaluation. He notes the pain is epigastric, intermittent cramping no aggravating factors relieved with pain medications in the ED associated with some nausea. The patient does not note any specific relationship with food. He denies any significant vomiting, he denies any dark stools or blood in stools. He does have chronic constipation alternating with diarrhea. He attributes this to his irregular bowel movements and notes that when he is constipated he takes stool softeners will result in diarrhea. The patient denies any fever does admit to having some chills. Has had decreased p.o. intake because of the nausea that has been bothering him. The patient otherwise denies any new headache chest pain shortness of breath denies any cough denies any urinary symptoms denies any swelling in the legs skin rashes or any other acute complaints. The patient admits to drinking alcohol, buys 1/5 of vodka a few times a month and binge drinks over 1 to 2 days. Recently celebrated his birthday on with his friend and had alcohol. In the emergency room patient has a normal WBC count hemoglobin 13.2 MCV 104 platelets 314 chemistries show sodium of 135 potassium 4.6 bicarbonate 18 creatinine 1.8 BUN 48 glucose 227 AST 72 ALT 73 alk phos 145 total protein is 8.[address] abdomen and pelvis is negative for any acute pathology does have hernia left inguinal. Given that patient has acute kidney injury unable to tolerate p.o. diet as well as epigastric pain likely related to gastritis or pancreatitis patient is being admitted to observation status to the hospital Pt was later transitioned to inpt status due to Etoh withdrawal. 04/18 Pt seen examined, pt abdominal pain is better now, feels like he could eat something no BM since yesterday on CIWA protocol, I think ativan helped his symptoms, lipase trending down, labs stable, creat improving. 04/19 Patient seen examined, doing much better, stable ciwa, no nausea , still has intermittent cramping, but this is his baseline able to tolerate po diet well creat is 0.9 Stable for discharge NO changes made to his [facility] home medication list outpatient pcp follow up for further eval In summary A/P Abdominal pain/ Chr pancreatitis? vs Gastritis stable and improved, able to tolerate po diet advised to stop consuming alcohol which will help Acute Kidney Injury - creat back to baseline at discharge Chr pain -follow up outpatient with rheumatology, no changes made to home regime. Abnl LFT stable, improved during hospital stay Alcohol abuse -educated, Inguinal hernia -noted on Ct, reviewed with surgery dr ash, no indication for intervention at this time, given asymptomatic, outpatient referral can be made by PCP if patient desires intervention or becomes symptomatic. Discharge diagnosis: acute pancreatitis, acute kidney injury - Time Spent with Patient Total time spent providing and/or coordinating discharge services: Less than 30 minutes Medical - DS: Exam - Constitutional Vitals: Vital Signs Temp Pulse Resp BP Pulse Ox 04/19/19 07:04 98.5 F 20 173/82 97 04/19/19 03:42 98.4 F 69 18 176/79 97 04/18/19 23:08 98.9 F 77 18 177/77 97 04/18/19 19:03 98.8 F 89 16 148/84 97 04/18/19 15:13 98.6 F 90 14 156/80 94 04/18/19 12:00 98.1 F 77 16 148/79 95 Intake and Output 04/18/19 04/19/19 04/19/19 21:59 05:59 13:59 Intake Total 500 651 520 Output Total 800 350 Balance 500 -149 170 Intake: IV 51 Vitamin B1 100 mg In Sodium 51 Chloride 0.9% 50 ml @ 50 mls/hr IV DAILY [facility] Rx#:[id number] Oral 500 600 520 Output: Void Amount 800 350 Other: Meal Dinner Percent of Meal Consumed 100% Feeding Ability Independent Urine Appearance Clear Urine Color Straw Urine Odor Normal Stool Size Smear Moderate Stool Color Brown Brown Black Stool Consistency Loose Loose # Voids 1 # Bowel Movements 1 1 Weight 161 lb Additional comments: Constitutional; Afebrile, cooperative, alert, not in distress. Respiratory system: Air Entry equal on both sides, No crackles or wheezing, no rhonchi. CVS- Rate rhythm regular, S1,S2 heard, no gallop, no rub. Abdomen- Soft nontender abdomen, no organomegaly, no tenderness, no guarding or rigidity, [employer]ESSION[employer]IVER- AOOx3, moving all extremities, no gross focal deficit noted. Medical - DS: Data Labs on day of discharge: Labs from last 24 hours 04/19/19 04/19/19 04/18/19 03:41 03:41 14:44 WBC 5.6 RBC 3.11 L Hgb 11.3 L Hct 32.9 L MCV 105.8 H MCH 36.4 H MCHC 34.4 RDW 14.0 Plt Count 227 MPV 7.4 Gran % 48.5 Lymph % (Auto) 33.4 Person % (Auto) 16.5 H Eos % (Auto) 0.7 Baso % (Auto) 0.9 Gran # 2.7 Lymph # (Auto) 1.9 Person # (Auto) 0.9 Eos # (Auto) 0 Baso # (Auto) 0 Sodium 135 Potassium 4.4 Chloride 101 Carbon Dioxide 21 L Anion Gap 13.0 BUN 21 H Creatinine 0.9 GFR Calculation 93 Glucose 129 H Uric Acid 6.4 Calcium 8.7 Phosphorus 2.5 L Magnesium 1.6 Total Bilirubin 0.6 Direct Bilirubin < 0.2 GGT 286 H AST 53 H ALT 46 H Alkaline Phosphatase 106 Lactate Dehydrogenase 182 Total Protein 6.9 Albumin 3.7 Globulin 3.2 Albumin/Globulin Ratio 1.2 Triglycerides 348 H Ur Random Creatinine U Random Total Protein U [place] Prot/Creat Ratio Ur Random Sodium 51 Urine Opiates Screen Ur Oxycodone Screen Urine Methadone Screen Ur Barbiturates Screen Ur Phencyclidine Scrn Ur Amphetamines Screen U Benzodiazepines Scrn Urine Cocaine Screen U Marijuana (THC) Screen Urine Alcohol 04/18/19 04/18/19 14:44 08:05 WBC RBC Hgb Hct MCV MCH MCHC RDW Plt Count MPV Gran % Lymph % (Auto) [place] % (Auto) Eos % (Auto) Baso % (Auto) Gran # Lymph # (Auto) Person # (Auto) Eos # (Auto) Baso # (Auto) Sodium Potassium Chloride Carbon Dioxide Anion Gap BUN Creatinine GFR Calculation Glucose Uric Acid Calcium Phosphorus Magnesium Total Bilirubin Direct Bilirubin GGT AST ALT Alkaline Phosphatase Lactate Dehydrogenase Total Protein Albumin Globulin Albumin/Globulin Ratio Triglycerides Ur Random Creatinine 142.4 U Random Total Protein 169 U [place] Prot/Creat Ratio 1.19 H Ur Random Sodium Urine Opiates Screen None detected Ur Oxycodone Screen None detected Urine Methadone Screen None detected Ur Barbiturates Screen None detected Ur Phencyclidine Scrn None detected Ur Amphetamines Screen None detected U Benzodiazepines Scrn None detected Urine Cocaine Screen None detected U Marijuana (THC) Screen Suspect positive A Urine Alcohol None detected Medical - DS: A/P - Patient/Caregiver Discharge Instructions Activity: increase activity as tolerated Diet: Regular Diet Additional Instructions: Avoid alcohol Go to the ER if worsening symptoms, chest pain, fever or any other acute complaint No changes made to your home medication list, Follow up with PCP in 1 week You have a hernia on the left side, if you develop left sided abdominal pain, or worsening swelling, talk to your PCP regarding a surgery referral. - Follow up Plan Follow up with: Stanislaw Rachel MD [Primary Care Provider] - Disposition: Home, Self-Care Prognosis: Fair Rehab Potential: Fair I certify that the patient requires SNF services: No Overall status at discharge: patient is progressing back to baseline Medical - DS: Qual - VTE Deep Vein Thrombosis/Pulmonary Embolism Present on Admission: No
[2019-04-24] MEDS ORDERED: METHOTREXATE SODIUM 2.5 MG TABLET PO SCH (09:00)
== END 2019-04-19 14:30 | disposition home or self-care (01) | DRG 439 ==
LOC: MEDSUR 15:04 → ED 15:04 → INTOOBSV 20:12 → OBSVTOIN 20:12 → MEDSUR 20:17
PROVIDERS: ADMIT Internal Medicine; ATTEND Internal Medicine

== ENCOUNTER 2021-12-09 15:08 | Inpatient (IN) ==
[2021-12-09] MEDS ORDERED: IOPAMIDOL 100 ML BOTTLE IV ONE (15:09)
[2021-12-09] MEDS ORDERED: 0.9 % SODIUM CHLORIDE 250 ML IV SCH ×3 (15:15→16:45)
[2021-12-09] MEDS ORDERED: ONDANSETRON 4 MG ODT TABLET SL ONE (15:22)
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
[2021-12-09 16:00] LABS: POC Blood Urea Nitrogen 32 mg/dL (6-20); POC CO2 15 mmol/L (22-30); POC Calcium, Ionized 1.15 mmEq/L (1.16-1.32); POC Chloride 109 mEq/L (96-108); POC Creatinine 0.8 mg/dL (0.6-1.2); POC Glucose, Random 234 mg/dL (70-105); POC Hematocrit 17 % (41-55); POC Potassium 3.5 mEql/L (3.3-5.1); POC Sodium 141 mEq/L (133-145)
--- NOTE | 2021-12-09 16:39 | XRay Report ---
CLINICAL INFORMATION: Trauma COMPARISON: None FINDINGS: No fracture or other osseous abnormality. Joint spaces are normal in width and alignment. Soft tissues are unremarkable. IMPRESSION: Normal exam. Interpreted and Authenticated by: West Vásquez 12/09/21
--- NOTE | 2021-12-09 16:39 | Cat Scan Report ---
CLINICAL INFORMATION: Trauma COMPARISON: Head CT 06/20/2020 and 02/19/2012. TECHNIQUE: 2.5 mm helical slices were obtained in the skull base to vertex. Following reconstruction, axial reformatted images were reviewed at bone and parenchymal windows. The exam was performed using radiation dose optimization techniques including, but not limited to, automated exposure control, adjustment of the mA and/or kV according to patient size and use of iterative reconstruction technique. FINDINGS: The ventricles, sulci, fissures, and cisterns and the frontal and anterior temporal regions are enlarged compatible with mild asymmetric frontal temporal atrophy - more than expected for age.. No extra-axial fluid collections are identified. The cerebrum, brainstem and cerebellum are unremarkable. There is no evidence of hemorrhage, mass effect, or edema. Bone windows show no osseous abnormality. IMPRESSION: No intracerebral hemorrhage or other acute posttraumatic change. Mild asymmetric frontal and temporal atrophy. This may be stigmata of early Alzheimer's disease - slight progression from 2012. Moderate arthritic changes in the left TMJ with erosion of the glenoid fossa. This has progressed . Interpreted and Authenticated by: West Vásquez 12/09/21
[2021-12-09 16:44] LABS: INR 1.1 (0.9-1.1); Partial Thromboplastin Time 33.6 sec (20.0-37.0); Prothrombin Time 14.6 sec (11.9-14.5)
[2021-12-09 16:53] LABS: Basophils # (Auto) 0.01 K/mcL (0.00-0.30); Basophils % (Auto) 0.1 % (0.0-2.0); Eosinophils # (Auto) 0 K/mcL (0.00-0.70); Eosinophils % (Auto) 0 % (0.0-7.0); Lymphocytes % (Auto) 1.3 % (15.5-49.0); Mean Corpuscular HGB Conc 31.1 g/dL (31.0-36.0); Mean Platelet Volume 12.3 fL (7.4-10.4); Monocytes # (Auto) 0.59 K/mcL (0.10-0.90); Monocytes % (Auto) 7.9 % (1.0-12.0); Neutrophils % (Auto) 90.7 % (38.0-78.0); Platelet Count 54 K/mcL (140-440); RBC 1.92 M/mcL (4.63-6.08); Red Cell Distribution Width 18.4 % (11.5-14.5); WBC 7.5 K/mcL (4.5-11.0)
--- NOTE | 2021-12-09 17:00 | Cat Scan Report ---
CLINICAL INFORMATION: Trauma COMPARISON: None. TECHNIQUE: Enteric contrast was utilized. 80 cc of Isovue-[id number] were injected intravenously, and 50 seconds later, 0.625 mm helical slices were obtained from the lung apices through the subtrochanteric regions of the femurs. Following reconstruction, 2.5 mm sagittal, coronal and axial reformatted images were processed and reviewed at multiple windows and levels. 7 mm MIP reconstructions were obtained through the lungs to optimize nodule detection.The exam was performed using radiation dose optimization techniques including, but not limited to, automated exposure control, adjustment of the mA and/or kV according to patient size and use of iterative reconstruction technique. FINDINGS: Pulmonary parenchymal windows show scattered small foci of groundglass airspace disease in the peripheral left lun mm the lateral left upper lobe on image 37, 10 mm in the right lower lobe adjacent to major fissure on image 44, 4 mm left upper lobe image 47, 8 mm and 11 mm in the anterior left lower lobe on image 44, 14 mm posterior right lower lobe on image 69 and 70 mm posterior lateral left lower lobe on image 76. Small posttraumatic contusions are suspected. Mild underlying centrilobular emphysema appreciated. No effusions or pneumothorax. Mediastinal windows show the heart is mildly enlarged with heavy calcific plaque in the proximal LAD. The pulmonary arteries are normal in diameter and opacified-no evidence of embolus. The thoracic aorta is normal in diameter. There is no adenopathy in the mediastinal, hilar or axillary region. The esophagus is grossly normal. The thyroid is unremarkable. Abdominal images show moderate fatty changes within the liver, but no focal lesion. A 1 mm stone is seen within the gallbladder. Gallbladder and bile ducts are, otherwise, normal: CBD 5 mm. Both kidneys, adrenal glands, spleen are normal. The aorta is normal diameter with scattered atherosclerotic plaque. Artery branches contain plaque but no stenoses. Mild heterogeneity in the pancreatic head, neck and proximal body attenuation with inflammation in the peripancreatic fat is suggestive of acute interstitial pancreatitis. The adjacent duodenum shows mild thickening of the wall and plicae circulares. This may be sympathetic from pancreatitis or primary duodenitis. The remaining small and large bowel are unremarkable with the exception of sigmoid diverticulosis. There is no free air, free fluid or adenopathy. Acute nondisplaced fracture anterolateral left sixth rib appreciated. No other fractures or significant osseous abnormality. IMPRESSION: 1. Scattered small groundglass foci in the periphery of the left upper and lower lobe which could indicate posttraumatic contusions. One or more lesions could indicate primary or secondary malignancy, however this is unlikely. Suggest follow-up chest CT in six months for reassessment. 2. Mild centrilobular emphysema. 3. Suspect mild pancreatitis involving the head and neck region. Please correlate with amylase and lipase. There is wall thickening of the adjacent duodenum. In the absence of amylase and lipase elevation, the possibility of primary duodenitis should be entertained 4. No posttraumatic changes in the abdomen or pelvis region. 5. Acute nondisplaced fracture-anterior left sixth rib. 6. Sigmoid diverticulosis. Interpreted and Authenticated by: West Vásquez 12/09/21
--- NOTE | 2021-12-09 17:04 | Cat Scan Report ---
CLINICAL INFORMATION: COMPARISON: None. TECHNIQUE: 0.625 mm helical slices were obtained from the skull base through the superior T2 end plate, and following reconstruction, 2.5 mm sagittal, coronal and axial reformations were then processed. The exam was reviewed at bone and soft tissue windows. The exam was performed using radiation dose optimization techniques including, but not limited to, automated exposure control, adjustment of the mA and/or kV according to patient size and use of iterative reconstruction technique. FINDINGS: There is slight reversal of the cervical lordotic curve suggesting muscle spasm. No posttraumatic subluxation. No fracture or other focal osseous abnormality appreciated. The cervical cord is normal in contour and caliber without hemorrhage or other abnormality. Paraspinous soft tissues are significant for moderate calcific plaque in the carotid bifurcations. Severe left and moderate right TMJ degeneration noted The C2-3 disc level is normal. At C3-4, mild broad disc protrusion mildly impinges the thecal sac At C4-5, moderate broad disc protrusion with left-sided asymmetry and facet arthropathy result in moderate central canal and left lateral recess narrowing. There is impingement of the exiting left C5 nerve root. At C5-6, moderate broad disc spur complex results in mild central canal and moderate left IV foraminal narrowing. There is impingement of the exiting left C6 nerve root C6-7 moderate broad disc spur complex results in mild central canal and left lateral recess narrowing C7-T1 disc level is normal IMPRESSION: 1. No fracture or posttraumatic change. 2. Multilevel degeneration. 3. Severe left and moderate right TMJ degeneration. 4. Moderate premature calcific plaque in the carotid bifurcations. Consider carotid Doppler study to evaluate for stenosis Interpreted and Authenticated by: Wset Vásquez 12/09/21
[2021-12-09] MEDS ORDERED: ONDANSETRON 4 MG/2 ML VIAL ONE (17:22)
[2021-12-09] MEDS ORDERED: ONDANSETRON 4 MG/2 ML VIAL IV ONE (17:26)
[2021-12-09] MEDS ORDERED: morphine 2 MG/ML VIAL IV PRN (18:03)
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
[2021-12-09] MEDS ORDERED: DEXTROSE 50% 50 ML VIAL IV PRN (21:20)
[2021-12-09] MEDS ORDERED: PANTOPRAZOLE 40 MG VIAL IV ONE ×2 (21:20→21:32)
[2021-12-09] MEDS ORDERED: ACETAMINOPHEN 325 MG TABLET PO PRN (21:20)
[2021-12-09] MEDS ORDERED: SENNOSIDES 1 TABLET PO PRN (21:20)
[2021-12-09] MEDS ORDERED: DEXTROSE 31 GM ORAL.SUSP PO PRN (21:20)
[2021-12-09] MEDS ORDERED: LACTULOSE 20 GM/30 ML ORAL.SOL PO PRN (21:20)
[2021-12-09] MEDS ORDERED: NALOXONE HCL 0.4 MG/ML VIAL IV PRN (21:20)
[2021-12-09] MEDS: ONDANSETRON 4 MG/2 ML VIAL IV PRN (21:41)
[2021-12-09] MEDS: PANTOPRAZOLE 80 MG in 0.9 % SODIUM CHLORIDE 100 ML IV SCH (21:41)
[2021-12-09] MEDS: 0.9 % SODIUM CHLORIDE 10 ML SYRINGE IV SCH (21:42)
[2021-12-09] MEDS: LACTATED RINGERS 1,000 ML IV SCH (21:42)
[2021-12-09 23:00] LABS: ALT/SGPT 14 U/L (<40); AST/SGOT 78 U/L (<40); Albumin 3.6 gm/dL (3.2-5.2); Albumin/Globulin Ratio 0.9 (1.0-2.3); Alkaline Phosphatase 115 U/L (39-117); Bilirubin,Direct 0.7 mg/dL (<0.3); Bilirubin,Total 1.2 mg/dL (0.1-1.0); Blood Urea Nitrogen 30 mg/dL (8-23); Calcium 8.3 mg/dL (8.6-10.4); Carbon Dioxide 15 mmol/L (22-30); Chloride 101 mmol/L (96-108); Globulin 3.9 gm/dL (2.2-3.7); Glomerular Filtration Rate 95; Glucose 146 mg/dL (70-105); HDL Cholesterol 53 mg/dL (>40); LDL Cholesterol,Calculated 71 mg/dL (<100); Lactate Dehydrogenase 282 U/L (135-225); Non-HDL Cholesterol 119 mg/dL (<130); Phosphorous 1.2 mg/dL (2.5-4.5); Triglycerides 244 mg/dL (<150); Uric Acid 8.2 mg/dL (2.5-8.0)
[2021-12-10] MEDS: INSULIN LISPRO 1 UNIT/0.01 ML UNIT SQ SCH ×5 (02:28→20:59)
[2021-12-10] MEDS: 0.9 % SODIUM CHLORIDE 10 ML SYRINGE IV SCH ×3 (04:54→22:07)
[2021-12-10] MEDS ORDERED: POTASSIUM PHOSPHATE 20 MEQ in DEXTROSE 5% IN WATER 250 ML IV ONE (05:05)
[2021-12-10] MEDS ORDERED: MAGNESIUM SULFATE 2 GM/50 ML BAG IV ONE ×2 (05:07→05:14)
[2021-12-10] MEDS ORDERED: 0.9 % SODIUM CHLORIDE 250 ML IV SCH ×2 (05:15→08:00)
[2021-12-10] MEDS ORDERED: POTASSIUM PHOSPHATE 66 MEQ/15 ML VIAL IV ONE (05:19)
[2021-12-10 07:27] LABS: Hematocrit 19.3 % (40.1-51.0); Hemoglobin 6.5 g/dL (13.7-17.5); Mean Cell Volume 88.9 fL (80.0-100.0); Mean Corpuscular HGB Conc 33.7 g/dL (31.0-36.0); Platelet Count 41 K/mcL (140-440); RBC 2.17 M/mcL (4.63-6.08); Red Cell Distribution Width 18.4 % (11.5-14.5); WBC 4.7 K/mcL (4.5-11.0)
[2021-12-10 07:35] LABS: ALT/SGPT 12 U/L (<40); AST/SGOT 73 U/L (<40); Albumin 2.9 gm/dL (3.2-5.2); Albumin/Globulin Ratio 0.9 (1.0-2.3); Alkaline Phosphatase 90 U/L (39-117); Bilirubin,Direct 0.5 mg/dL (<0.3); Bilirubin,Total 0.8 mg/dL (0.1-1.0); Blood Urea Nitrogen 25 mg/dL (8-23); Calcium 7.7 mg/dL (8.6-10.4); Carbon Dioxide 14 mmol/L (22-30); Chloride 108 mmol/L (96-108); Globulin 3.2 gm/dL (2.2-3.7); Glomerular Filtration Rate 95; Glucose 110 mg/dL (70-105); Lactate Dehydrogenase 270 U/L (135-225); Triglycerides 183 mg/dL (<150); Uric Acid 8.7 mg/dL (2.5-8.0)
[2021-12-10 07:36] LABS: Iron 198 ug/dL (61-157); TIBC Calculation 301 ug/dl (228-428); Transferrin % Saturation 66 % (20-50)
[2021-12-10] MEDS: HYDROmorphone 0.5 MG/0.5 ML SYRINGE IV PRN ×5 (08:01→22:03)
[2021-12-10] MEDS: PANTOPRAZOLE 80 MG in 0.9 % SODIUM CHLORIDE 100 ML IV SCH ×3 (08:13→18:29)
[2021-12-10 11:20] LABS: Anisocytosis 2+ (None Seen); Band Neutrophils % 6 % (0-10); Hypochromasia 1+ (None Seen); Lymphocytes % 11 % (15-49); Monocytes % (Manual) 13 % (1-12); Nucleated Red Blood Cells 2 % (0-0); Platelet Estimate MARKEDLY DECREASED (Normal); RBC Morphology ABNORMAL (Normal); Segmented Neutrophils % 70 % (38-78)
[2021-12-10] MEDS: LACTATED RINGERS 1,000 ML IV SCH ×3 (11:45→22:06)
[2021-12-10] MEDS: SUCRALFATE 1 GM/10 ML ORAL.SUSP PO SCH ×2 (11:51→18:29)
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
[2021-12-10] MEDS: ONDANSETRON 4 MG/2 ML VIAL IV PRN ×2 (14:21→21:08)
[2021-12-10] MEDS: METOCLOPRAMIDE 10 MG/2 ML VIAL IV SCH (16:33)
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
[2021-12-10] MEDS: HYDROcodone/APAP 5/325MG TABLET PO PRN (18:34)
[2021-12-11] MEDS: HYDROmorphone 0.5 MG/0.5 ML SYRINGE IV PRN ×4 (00:01→07:45)
[2021-12-11] MEDS: METOCLOPRAMIDE 10 MG/2 ML VIAL IV SCH ×4 (00:01→17:45)
[2021-12-11] MEDS: SUCRALFATE 1 GM/10 ML ORAL.SUSP PO SCH ×4 (00:01→17:45)
[2021-12-11] MEDS: ONDANSETRON 4 MG/2 ML VIAL IV PRN ×2 (02:55→17:01)
[2021-12-11] MEDS: PANTOPRAZOLE 80 MG in 0.9 % SODIUM CHLORIDE 100 ML IV SCH ×3 (02:55→16:22)
[2021-12-11] MEDS: LACTATED RINGERS 1,000 ML IV SCH ×2 (04:12→08:35)
[2021-12-11 04:29] LABS: Hematocrit 16.7 % (40.1-51.0); Hemoglobin 5.2 g/dL (13.7-17.5)
[2021-12-11] MEDS: 0.9 % SODIUM CHLORIDE 10 ML SYRINGE IV SCH ×3 (05:03→22:22)
[2021-12-11] MEDS: INSULIN LISPRO 1 UNIT/0.01 ML UNIT SQ SCH ×4 (07:50→21:48)
[2021-12-11 08:08] LABS: Hematocrit 38.4 % (40.1-51.0); Hemoglobin 13.4 g/dL (13.7-17.5); Mean Cell Volume 88.1 fL (80.0-100.0); Mean Corpuscular HGB Conc 34.9 g/dL (31.0-36.0); Platelet Count 42 K/mcL (140-440); RBC 4.36 M/mcL (4.63-6.08); Red Cell Distribution Width 17.6 % (11.5-14.5); WBC 7.5 K/mcL (4.5-11.0)
[2021-12-11 08:50] LABS: ALT/SGPT 13 U/L (<40); AST/SGOT 66 U/L (<40); Albumin 3.2 gm/dL (3.2-5.2); Albumin/Globulin Ratio 0.9 (1.0-2.3); Alkaline Phosphatase 102 U/L (39-117); Bilirubin,Direct 0.6 mg/dL (<0.3); Bilirubin,Total 0.9 mg/dL (0.1-1.0); Blood Urea Nitrogen 13 mg/dL (8-23); Calcium 7.9 mg/dL (8.6-10.4); Carbon Dioxide 16 mmol/L (22-30); Chloride 102 mmol/L (96-108); Globulin 3.6 gm/dL (2.2-3.7); Glomerular Filtration Rate 95; Glucose 114 mg/dL (70-105); Lactate Dehydrogenase 383 U/L (135-225); Phosphorous 1.1 mg/dL (2.5-4.5); Triglycerides 187 mg/dL (<150); Uric Acid 7.3 mg/dL (2.5-8.0)
[2021-12-11] MEDS ORDERED: AMOXICILLIN 250 MG CAPSULE PO SCH ×2 (09:00→21:00)
[2021-12-11] MEDS ORDERED: LABETALOL 5 MG/ML ML IV PRN (10:26)
[2021-12-11] MEDS ORDERED: METOPROLOL TARTRATE 5 MG/5 ML VIAL IV ONE (10:50)
[2021-12-11] MEDS ORDERED: PROPOFOL 200 MG/20 ML VIAL IV ONE (11:08)
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
[2021-12-11] MEDS: CARVEDILOL 12.5 MG TABLET PO SCH ×2 (12:01→21:42)
[2021-12-11 12:58] LABS: Anisocytosis 2+ (None Seen); Band Neutrophils % 2 % (0-10); Eosinophils % (Manual) 1 % (0-7); Lymphocytes % 12 % (15-49); Monocytes % (Manual) 6 % (1-12); Nucleated Red Blood Cells 1 % (0-0); Platelet Estimate MARKEDLY DECREASED (Normal); RBC Morphology ABNORMAL (Normal); Reactive Lymphocytes 1 % (0-2); Segmented Neutrophils % 78 % (38-78)
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
[2021-12-11] MEDS: AMOXICILLIN 250 MG CAPSULE PO SCH ×2 (15:07→21:40)
[2021-12-11] MEDS: PHOSPHORUS 250 MG TABLET PO SCH ×2 (15:10→21:40)
[2021-12-11] MEDS: HYDROcodone/APAP 5/325MG TABLET PO PRN ×2 (15:23→19:34)
[2021-12-11] MEDS ORDERED: HYDROmorphone 0.5 MG/0.5 ML SYRINGE IV PRN (15:34)
[2021-12-11] MEDS: PANTOPRAZOLE 40 MG PACKET PO SCH (17:03)
[2021-12-11] MEDS ORDERED: metroNIDAZOLE 500 MG TABLET PO SCH (21:00)
[2021-12-12] MEDS: METOCLOPRAMIDE 10 MG/2 ML VIAL IV SCH ×4 (00:35→17:30)
[2021-12-12] MEDS: SUCRALFATE 1 GM/10 ML ORAL.SUSP PO SCH ×4 (00:35→17:30)
[2021-12-12] MEDS: 0.9 % SODIUM CHLORIDE 10 ML SYRINGE IV SCH ×3 (05:19→22:19)
[2021-12-12] MEDS: INSULIN LISPRO 1 UNIT/0.01 ML UNIT SQ SCH ×4 (07:26→22:03)
[2021-12-12] MEDS: PANTOPRAZOLE 40 MG PACKET PO SCH ×2 (07:26→17:30)
[2021-12-12] MEDS: HYDROcodone/APAP 5/325MG TABLET PO PRN ×3 (07:37→22:20)
[2021-12-12 08:19] LABS: ALT/SGPT 11 U/L (<40); AST/SGOT 69 U/L (<40); Albumin 2.8 gm/dL (3.2-5.2); Albumin/Globulin Ratio 0.8 (1.0-2.3); Alkaline Phosphatase 116 U/L (39-117); Bilirubin,Direct 0.8 mg/dL (<0.3); Bilirubin,Total 1.3 mg/dL (0.1-1.0); Blood Urea Nitrogen 10 mg/dL (8-23); Calcium 7.5 mg/dL (8.6-10.4); Carbon Dioxide 17 mmol/L (22-30); Chloride 101 mmol/L (96-108); Globulin 3.5 gm/dL (2.2-3.7); Glomerular Filtration Rate 91; Glucose 160 mg/dL (70-105); Lactate Dehydrogenase 344 U/L (135-225); Triglycerides 155 mg/dL (<150); Uric Acid 7.2 mg/dL (2.5-8.0)
[2021-12-12 08:33] LABS: Hematocrit 36.3 % (40.1-51.0); Hemoglobin 12.7 g/dL (13.7-17.5); Mean Cell Volume 86.2 fL (80.0-100.0); Platelet Count 44 K/mcL (140-440); RBC 4.21 M/mcL (4.63-6.08); Red Cell Distribution Width 16.6 % (11.5-14.5)
[2021-12-12 08:39] LABS: Anisocytosis 1+ (None Seen); Lymphocytes % 8 % (15-49); Monocytes % (Manual) 8 % (1-12); Nucleated Red Blood Cells 1 % (0-0); Platelet Estimate MARKEDLY DECREASED (Normal); Polychromasia 1+ (None Seen); RBC Morphology ABNORMAL (Normal); Reactive Lymphocytes 2 % (0-2); Segmented Neutrophils % 82 % (38-78)
[2021-12-12] MEDS: AMOXICILLIN 250 MG CAPSULE PO SCH ×2 (08:58→22:19)
[2021-12-12] MEDS: CARVEDILOL 12.5 MG TABLET PO SCH ×2 (08:58→17:30)
[2021-12-12] MEDS: PHOSPHORUS 250 MG TABLET PO SCH ×2 (08:58→22:19)
[2021-12-12] MEDS: ONDANSETRON 4 MG/2 ML VIAL IV PRN ×2 (09:05→17:43)
[2021-12-12] MEDS ORDERED: MAGNESIUM SULFATE 8.12 MEQ/2 ML VIAL IV STA (09:24)
[2021-12-12] MEDS ORDERED: MAGNESIUM SULFATE 32.48 MEQ in DEXTROSE 5% IN WATER 100 ML IV ONE (09:24)
[2021-12-12] MEDS ORDERED: SODIUM PHOSPHATE 30 MMOL in DEXTROSE 5% IN WATER 500 ML IV ONE (09:30)
[2021-12-12] MEDS ORDERED: METHOCARBAMOL 750 MG TABLET PO PRN (10:38)
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
--- NOTE | 2021-12-12 16:14 | XRay Report ---
CLINICAL INFORMATION: Fever COMPARISON: 10/19/2021 TECHNIQUE: Vertebral FINDINGS: The heart is now mildly enlarged. Mediastinum and pulmonary vessels are normal. Moderate patchy infiltrates have developed in the left upper and both lower lungs. No effusions. IMPRESSION: Moderate yet vague, patchy infiltrates developing in the left upper and both lower lungs Interpreted and Authenticated by: West Vásquez 12/12/21
[2021-12-12 16:59] LABS: Basophils # (Auto) 0.02 K/mcL (0.00-0.30); Basophils % (Auto) 0.4 % (0.0-2.0); Eosinophils # (Auto) 0.01 K/mcL (0.00-0.70); Eosinophils % (Auto) 0.2 % (0.0-7.0); Hematocrit 36.1 % (40.1-51.0); Hemoglobin 12.4 g/dL (13.7-17.5); Lymphocytes # (Auto) 0.61 K/mcL (1.50-4.80); Lymphocytes % (Auto) 12.3 % (15.5-49.0); Mean Corpuscular HGB Conc 34.3 g/dL (31.0-36.0); Mean Platelet Volume 11.9 fL (7.4-10.4); Monocytes # (Auto) 0.47 K/mcL (0.10-0.90); Monocytes % (Auto) 9.5 % (1.0-12.0); Neutrophils % (Auto) 77.6 % (38.0-78.0); Platelet Count 45 K/mcL (140-440); Red Cell Distribution Width 17.1 % (11.5-14.5)
[2021-12-12] MEDS: ALLOPURINOL 100 MG TABLET PO SCH (22:19)
[2021-12-12] MEDS: MAGNESIUM OXIDE 400 MG TABLET PO SCH (22:21)
[2021-12-13] MEDS: METOCLOPRAMIDE 10 MG/2 ML VIAL IV SCH ×4 (02:03→17:03)
[2021-12-13] MEDS: SUCRALFATE 1 GM/10 ML ORAL.SUSP PO SCH ×4 (02:03→17:04)
[2021-12-13] MEDS: HYDROcodone/APAP 5/325MG TABLET PO PRN ×4 (05:27→21:43)
[2021-12-13] MEDS: 0.9 % SODIUM CHLORIDE 10 ML SYRINGE IV SCH ×3 (05:32→21:45)
[2021-12-13 07:18] LABS: Hematocrit 37.7 % (40.1-51.0); Hemoglobin 12.6 g/dL (13.7-17.5); Mean Cell Volume 91.5 fL (80.0-100.0); Mean Corpuscular HGB Conc 33.4 g/dL (31.0-36.0); Mean Platelet Volume 10.5 fL (7.4-10.4); Platelet Count 52 K/mcL (140-440); RBC 4.12 M/mcL (4.63-6.08); Red Cell Distribution Width 18.3 % (11.5-14.5); WBC 5.2 K/mcL (4.5-11.0)
[2021-12-13 07:36] LABS: Amylase 80 U/L (28-100)
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
[2021-12-13] MEDS ORDERED: PRAVASTATIN 40 MG TABLET PO SCH (09:00)
[2021-12-13] MEDS ORDERED: CYANOCOBALAMIN (VITAMIN B-12) 1,000 MCG TABLET PO SCH (09:00)
[2021-12-13 09:08] LABS: Anisocytosis 1+ (None Seen); Band Neutrophils % 1 % (0-10); Basophils % (Manual) 1 % (0-2); Lymphocytes % 8 % (15-49); Monocytes % (Manual) 7 % (1-12); Platelet Estimate DECREASED (Normal); Polychromasia 1+ (None Seen); RBC Morphology ABNORMAL (Normal); Segmented Neutrophils % 83 % (38-78)
[2021-12-13] MEDS: PHOSPHORUS 250 MG TABLET PO SCH ×2 (09:24→21:44)
[2021-12-13] MEDS: CARVEDILOL 12.5 MG TABLET PO SCH ×2 (09:24→17:04)
[2021-12-13] MEDS: PANTOPRAZOLE 40 MG PACKET PO SCH ×2 (09:24→17:04)
[2021-12-13] MEDS: FENOFIBRATE 43 MG CAPSULE PO SCH (09:24)
[2021-12-13] MEDS: MAGNESIUM OXIDE 400 MG TABLET PO SCH ×2 (09:25→21:44)
[2021-12-13] MEDS: SIMVASTATIN 20 MG TABLET PO SCH (09:25)
[2021-12-13] MEDS: OMEPRAZOLE 20 MG CAPSULE PO SCH (09:25)
[2021-12-13] MEDS: AMOXICILLIN 250 MG CAPSULE PO SCH ×2 (09:25→21:44)
[2021-12-13] MEDS: ASPIRIN 81 MG TAB.CHEW PO SCH (09:25)
[2021-12-13] MEDS: ALLOPURINOL 100 MG TABLET PO SCH ×2 (09:25→21:45)
[2021-12-13] MEDS: INSULIN LISPRO 1 UNIT/0.01 ML UNIT SQ SCH ×4 (09:26→21:25)
[2021-12-13 09:32] LABS: ALT/SGPT 10 U/L (<40); AST/SGOT 48 U/L (<40); Albumin 2.4 gm/dL (3.2-5.2); Albumin/Globulin Ratio 0.7 (1.0-2.3); Alkaline Phosphatase 108 U/L (39-117); Bilirubin,Direct 0.7 mg/dL (<0.3); Bilirubin,Total 1.1 mg/dL (0.1-1.0); Blood Urea Nitrogen 10 mg/dL (8-23); Calcium 7.1 mg/dL (8.6-10.4); Carbon Dioxide 18 mmol/L (22-30); Chloride 94 mmol/L (96-108); Globulin 3.4 gm/dL (2.2-3.7); Glomerular Filtration Rate 95; Glucose 131 mg/dL (70-105); Lactate Dehydrogenase 317 U/L (135-225); Phosphorous 1.9 mg/dL (2.5-4.5); Triglycerides 182 mg/dL (<150); Uric Acid 6.3 mg/dL (2.5-8.0)
[2021-12-13] MEDS ORDERED: POTASSIUM CHLORIDE 20 MEQ TABLET PO ONE (11:59)
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
[2021-12-13] MEDS ORDERED: POTASSIUM CHLORIDE 20 MEQ in DEXTROSE 5% IN WATER 250 ML IV ONE (12:01)
[2021-12-13 13:20] LABS: Appearance,Urine Clear (Clear); Bilirubin,Urine Moderate mg/dL (Negative); Color,Urine Amber; Culture Indicated,Urine No; Ketones,Urine 15 mg/dL mg/dL (Negative); Leukocyte Esterase,Urine Negative /uL (Negative); Nitrate,Urine Negative (Negative); PH,Urine 5.5 (5.0-9.0); Protein,Urine >=300 mg/dL mg/dL (Negative); Specific Gravity,Urine >= 1.030 (1.000-1.035); Urine Blood Trace-intact ery/mcL (Negative); Urine Hyaline Cast 11 /lph (0-2); Urine RBC 3 /hpf (0-3); Urine Squamous Epithelial Cell < 1 /hpf (0-4); Urine WBC 1 /hpf (0-4); Urobilinogen,Urine >=8.0 E.U./dL mg/dL
[2021-12-13] MEDS: SODIUM CHLORIDE 1 GM TABLET PO SCH ×2 (14:50→21:45)
[2021-12-14] MEDS: SUCRALFATE 1 GM/10 ML ORAL.SUSP PO SCH ×3 (00:26→12:00)
[2021-12-14] MEDS: METOCLOPRAMIDE 10 MG/2 ML VIAL IV SCH ×3 (00:27→12:00)
[2021-12-14] MEDS: HYDROcodone/APAP 5/325MG TABLET PO PRN ×2 (05:41→10:10)
[2021-12-14] MEDS: 0.9 % SODIUM CHLORIDE 10 ML SYRINGE IV SCH ×2 (05:42→15:42)
[2021-12-14] MEDS: CARVEDILOL 12.5 MG TABLET PO SCH (07:51)
[2021-12-14] MEDS: PANTOPRAZOLE 40 MG PACKET PO SCH (07:51)
[2021-12-14] MEDS: OMEPRAZOLE 20 MG CAPSULE PO SCH (07:51)
[2021-12-14] MEDS: INSULIN LISPRO 1 UNIT/0.01 ML UNIT SQ SCH ×2 (07:55→12:01)
[2021-12-14 08:01] LABS: ALT/SGPT 11 U/L (<40); AST/SGOT 56 U/L (<40); Alkaline Phosphatase 147 U/L (39-117); Bilirubin,Total 1.5 mg/dL (0.1-1.0); Blood Urea Nitrogen 12 mg/dL (8-23); Calcium 7.1 mg/dL (8.6-10.4); Carbon Dioxide 19 mmol/L (22-30); Chloride 96 mmol/L (96-108); Globulin 3.1 gm/dL (2.2-3.7); Glomerular Filtration Rate 91; Glucose 105 mg/dL (70-105); Lactate Dehydrogenase 433 U/L (135-225); Phosphorous 1.5 mg/dL (2.5-4.5); Triglycerides 178 mg/dL (<150); Uric Acid 5.7 mg/dL (2.5-8.0)
[2021-12-14 08:03] LABS: Hematocrit 40.1 % (40.1-51.0); Hemoglobin 13.6 g/dL (13.7-17.5); Mean Cell Volume 88.7 fL (80.0-100.0); Mean Corpuscular HGB Conc 33.9 g/dL (31.0-36.0); Mean Platelet Volume 12.5 fL (7.4-10.4); Platelet Count 56 K/mcL (140-440); RBC 4.52 M/mcL (4.63-6.08); Red Cell Distribution Width 17.7 % (11.5-14.5); WBC 5.2 K/mcL (4.5-11.0)
[2021-12-14 08:51] LABS: Anisocytosis 1+ (None Seen); Lymphocytes % 14 % (15-49); Monocytes % (Manual) 12 % (1-12); Nucleated Red Blood Cells 1 % (0-0); Platelet Estimate DECREASED (Normal); Polychromasia FEW (None Seen); RBC Morphology ABNORMAL (Normal); Reactive Lymphocytes 1 % (0-2); Segmented Neutrophils % 73 % (38-78)
[2021-12-14] MEDS ORDERED: MAGNESIUM SULFATE 24.36 MEQ in DEXTROSE 5% IN WATER 50 ML IV ONE (08:54)
[2021-12-14] MEDS ORDERED: PHOSPHORUS 250 MG TABLET PO SCH (09:00)
[2021-12-14] MEDS ORDERED: NEUTRA PHOS 1 PACKET PO SCH (09:00)
[2021-12-14] MEDS ORDERED: MAGNESIUM SULFATE 4 GM/100 ML BAG IV ONE (09:00)
[2021-12-14] MEDS ORDERED: CYANOCOBALAMIN (VITAMIN B-12) 500 MCG TABLET PO SCH (09:00)
[2021-12-14] MEDS ORDERED: SODIUM CHLORIDE 1 GM TABLET PO SCH (09:00)
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
[2021-12-14] MEDS: SIMVASTATIN 20 MG TABLET PO SCH (09:54)
[2021-12-14] MEDS: ASPIRIN 81 MG TAB.CHEW PO SCH (09:54)
[2021-12-14] MEDS: ALLOPURINOL 100 MG TABLET PO SCH (09:55)
[2021-12-14] MEDS: FENOFIBRATE 43 MG CAPSULE PO SCH (09:55)
[2021-12-14] MEDS: MAGNESIUM OXIDE 400 MG TABLET PO SCH (09:56)
[2021-12-14] MEDS: AMOXICILLIN 250 MG CAPSULE PO SCH (09:56)
[2021-12-14] MEDS: PHOSPHORUS 250 MG TABLET PO SCH (11:37)
[2021-12-18 15:57] LABS: Methylmalonic Acid 204 nmol/L (87-318)
--- NOTE | 2021-12-23 14:55 | EGD Procedure Note ---
Date of procedure 12/11/2021 PREOPERATIVE DIAGNOSIS: Upper gastrointestinal bleeding. POSTOPERATIVE DIAGNOSES: Upper gastrointestinal bleeding with distal esophagitis, acute toxic gastropathy, gastric erosions and healing acute duodenal ulcer. PROCEDURE: Esophagogastroduodenoscopy. SURGEON: Can Moyer MD DESCRIPTION OF PROCEDURE: Under general anesthesia, the patient turned to the left lateral decubitus position. Time-out procedure was carried out as per protocol. Bite block was placed. Scope was introduced through the bite block into the retropharynx and esophagus. The esophagus was unremarkable down to the GE junction. At the GE junction, there was moderate inflammation, but no acute ulceration. There was some old blood in the stomach, which was irrigated. There was diffuse inflammation of the entire body of the stomach, compatible with toxic gastropathy. This tissue was friable, but there was no pulsatile bleeding or constant oozing. There was more intense inflammation in the prepyloric antrum. There were superficial gastric erosions, which showed evidence of healing. Pylorus was deformed, but there was no channel ulcer. In the duodenal bulb, there were at least four superficial healing ulcers with fibrinous base, but no active bleeding. There was a small amount of old blood in the second portion of the duodenum, but there was no active bleeding. Scope was pulled back and irrigation was carried out. The ulcerations in the duodenal bulb were copiously irrigated, and there was no bleeding. Retroflex view was carried out in the stomach and there was no bleeding from the GE junction. The patient tolerated the procedure well. Air was suctioned from the stomach and the scope was removed. The patient was awakened and transferred to the ICU in satisfactory condition. LCS:hakeem Job ID: [id number] Doc ID: [id number] Can Moyer M.D. [email or web address]
== END 2021-12-14 14:50 | disposition home health service (06) | DRG 377 ==
LOC: ED 15:08 → ICU 21:15 → MEDSUR 12-12 17:55
PROVIDERS: ADMIT Internal Medicine; ATTEND Internal Medicine